=== PATIENT | male | born 1990 | race Caucasian/White ===

== ENCOUNTER 2020-12-05 13:17 | Emergency (ER) | payer SELFPAY ==
[~2020-12-05] VITALS: Ht 175.3 cm; Wt 90.7 kg
[2020-12-05 13:25] VITALS: BP 134/77
--- NOTE | 2020-12-05 13:28 | NUR ---
PT AMBULATED TO BED 11, STEADY GAIT.
--- NOTE | 2020-12-05 13:29 | NUR ---
30Y M c/c of wanting to be screened for STD's following two months of unprotected heterosexual sex. Pt denies n/v/d, flank pain, dyruria, polyuria, hematuria, penile discharge, penile changes, abd pain. PMH: Denies NKA RX: Denies
[2020-12-05] MEDS ORDERED: AZITHROMYCIN 250 MG TAB PO ONE (13:40)
[2020-12-05] MEDS ORDERED: cefTRIAXone 250 MG in LIDOCAINE MPF 1% 0.9 ML IM ONE (13:40)
--- NOTE | 2020-12-05 13:41 | NUR ---
ERMD evaluating pt at bedside.
[2020-12-05] MEDS ORDERED: ACYC400T PO (13:46)
[2020-12-05] MEDS ORDERED: LIDOCAINE MPF 1% 5 ML ONE (13:56)
[2020-12-05] MEDS ORDERED: cefTRIAXone 250 MG VIAL ONE (13:56)
[2020-12-05 14:10] VITALS: BP 134/77
--- NOTE | 2020-12-05 14:10 | NUR ---
Patient discharged with v/s stable. Written and verbal after care instructions given and explained. Patient alert, oriented and verbalized understanding of instructions. Ambulatory with steady gait. All questions addressed prior to discharge. ID band removed. Patient advised to follow up with PMD. Rx of Acyclovir given. Patient educated on indication of medication including possible reaction and side effects. Opportunity to ask questions provided and answered.
== END 2020-12-05 14:10 | disposition home or self-care (01) ==
LOC: MED 13:17
DX: A60.01 Herpesviral infection of penis (principal); Z11.3 Encounter for screening for infections with a predominantly sexual mode of transmission
CPT/HCPCS: 36415; 81002; 96372; 99283; J0696; J2001

== ENCOUNTER 2021-02-01 00:21 | Emergency (ER) | payer SELFPAY ==
[~2021-02-01] VITALS: Ht 175.3 cm; Wt 88.5 kg
[~2021-02-01 00:21] MED LIST: ACYC400T PO
[2021-02-01 00:27] VITALS: BP 154/90
[2021-02-01] MEDS ORDERED: PENICILLIN G BENZATHINE C-R 1.2 MU/2 ML SYR IM ONE (00:50)
[2021-02-01] MEDS ORDERED: cefTRIAXone 500 MG in LIDOCAINE MPF 1% 1 ML IM ONE (00:50)
[2021-02-01] MEDS ORDERED: DOXYCYCLINE 100 MG CAP PO SCH (00:50)
[2021-02-01] MEDS ORDERED: ACYC-278 PO (01:00)
[2021-02-01] MEDS ORDERED: DOXY-487 PO (01:00)
[2021-02-01] MEDS ORDERED: cefTRIAXone 500 MG VIAL ONE (01:00)
[2021-02-01] MEDS ORDERED: LIDOCAINE MPF 1% 5 ML ONE (01:01)
[2021-02-01 01:07] LABS: APPEARANCE,URINE CLOUDY (CLEAR); BILIRUBIN,URINE 1+ (NEGATIVE); BLOOD, URINE 2+ (NEGATIVE); COLOR,URINE YELLOW (YELLOW); LEUKOCYTE ESTERASE ,URINE 1+ (NEGATIVE); NITRITE, URINE NEGATIVE (NEGATIVE); PH,URINE 5.5 (5.0-9.0); UGLUCOSE NEGATIVE (NEGATIVE)
[2021-02-01 01:17] LABS: RBC,URINE 0-5 /HPF (0-5); WBC,URINE TOO MANY TO COUNT /HPF (0-5)
[2021-02-01 01:30] VITALS: BP 118/90
== END 2021-02-01 01:30 | disposition home or self-care (01) ==
LOC: MED 00:21
DX: A64 Unspecified sexually transmitted disease (principal); N34.2 Other urethritis; F17.200 Nicotine dependence, unspecified, uncomplicated; Z79.899 Other long term (current) drug therapy
CPT/HCPCS: 36415; 81001; 86592; 87086; 96372; 99284; J0558; J0696; J2001; 87491

== ENCOUNTER 2021-04-27 22:04 | Emergency (ER) | payer SELFPAY ==
[~2021-04-27] VITALS: Ht 175.3 cm; Wt 90.7 kg
[~2021-04-27 22:04] MED LIST changes: +ACYC-278 PO; -ACYC400T PO; +DOXY-487 PO
[2021-04-27 22:09] VITALS: BP 150/81
--- NOTE | 2021-04-27 22:12 | NUR ---
TO LOBBY A/W BED AMBULATORY
[2021-04-27] MEDS ORDERED: cefTRIAXone 1,000 MG in LIDOCAINE MPF 1% 2.1 ML IM ONE (22:50)
[2021-04-27] MEDS ORDERED: AZITHROMYCIN 250 MG TAB PO ONE (22:50)
--- NOTE | 2021-04-27 22:53 | NUR ---
PT AMBULATED TO BED 08.
--- NOTE | 2021-04-27 23:00 | NUR ---
PT. IS A 30 Y/O MALE THAT CAME INTO ED WITH C/O OF PENILE DISCHARGE. PT. STATES THAT HE HAS TESTED POSITIVE FOR GONORRHEA, BUT DENIES PAIN AT THIS TIME. PT. STATES SINCE 2 DAYS AGO, HE HAS BEEN HAVING PENILE DISCHARGE WITH THE COLOR YELLOW. DENIES N/V/D/FEVER; SKIN IS PINK/WARM/DRY; AAOX4 WITH EVEN AND STEADY GAIT; HR EVEN AND REGULAR; PT DENIES ANY FEVER, CP, SOB, OR COUGH AT THIS TIME; VSS; PATIENT SITTING ON BED FOR COMFORT; HOB ELEVATED; BEDRAILS UP X1; BED DOWN. ER MD MADE AWARE OF PT STATUS. PMH: NONE ALLERGIES: NKA
[2021-04-27] MEDS ORDERED: cefTRIAXone 1,000 MG VIAL ONE (23:17)
[2021-04-27] MEDS ORDERED: LIDOCAINE MPF 1% 5 ML ONE (23:17)
[2021-04-27] MEDS ORDERED: DOXY-487 PO (23:30)
--- NOTE | 2021-04-27 23:33 | NUR ---
PT GIVEN DISCHARGE INSTRUCTIONS AND MEDICATION TEACHINGS BY DR. MENDEZ. RX OF DOXYCYCLINE GIVEN. PT AMBULATED WITH STEADY GAIT TO PERSONAL VEHICLE. PT LEFT FACILITY AT THIS TIME.
--- NOTE | 2021-04-30 09:21 | NUR ---
LATE ENTRY-- RECEIVED CALL FROM LAB, PATIENT POSITIVE FOR GONORRHEA
== END 2021-04-27 23:33 | disposition home or self-care (01) ==
LOC: MED 22:04
DX: Z20.2 Contact with and (suspected) exposure to infections with a predominantly sexual mode of transmission (principal); Z79.899 Other long term (current) drug therapy
CPT/HCPCS: 36415; 81002; 87491; 96372; 99283; J0696; J2001

== ENCOUNTER 2021-11-21 19:15 | Emergency (ER) | payer SELFPAY ==
[~2021-11-21] VITALS: Ht 172.7 cm; Wt 94.5 kg
[2021-11-21 19:45] VITALS: BP 152/99
--- NOTE | 2021-11-21 19:52 | NUR ---
PT TAKEN TO LOBBY.
[2021-11-21] MEDS ORDERED: SULF-59 PO (20:44)
[2021-11-21 20:55] VITALS: BP 152/99
== END 2021-11-21 20:55 | disposition home or self-care (01) ==
LOC: MED 19:15
DX: S81.831A Puncture wound without foreign body, right lower leg, initial encounter (principal); L03.115 Cellulitis of right lower limb; Z79.2 Long term (current) use of antibiotics; Z79.899 Other long term (current) drug therapy
CPT/HCPCS: 73590; 73610; 73630; 99284

== ENCOUNTER 2021-12-06 05:19 | Emergency (ER) | payer SELFPAY ==
[~2021-12-06] VITALS: Ht 175.3 cm; Wt 86.2 kg
[~2021-12-06 05:19] MED LIST changes: +SULF-59 PO
[2021-12-06 05:39] VITALS: BP 106/69
--- NOTE | 2021-12-06 05:39 | NUR ---
TO BED AMBULATORY
--- NOTE | 2021-12-06 06:00 | NUR ---
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 PT WAS SEEN HERE WHEN INCIDENT OCCURED AND TOLD TO RETURN IF SWELLING OCCURED. DIME SIZED SCAB WOUND NOTED TO R LOWER LEG, SWELLING NOTED, REDNESS. 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 PT DENIES ANY FEVERS CHILLS, N/V/D. PT AMBULATORY W STEADY GAIT. PMH: DENIES ALLERGIES: DENIES
[2021-12-06] MEDS ORDERED: CEPH-588 PO ×2 (06:27→06:52)
[2021-12-06 06:50] VITALS: BP 106/69
--- NOTE | 2021-12-06 06:50 | NUR ---
Patient discharged with v/s stable. Written and verbal after care instructions given and explained. Patient alert, oriented and verbalized understanding of instructions. Ambulatory with steady gait. All questions addressed prior to discharge. ID band removed. Patient advised to follow up with PMD. Rx of KEFLEX given. Opportunity to ask questions provided and answered.
== END 2021-12-06 06:50 | disposition home or self-care (01) ==
LOC: MED 05:19
DX: L03.115 Cellulitis of right lower limb (principal); Z79.899 Other long term (current) drug therapy
CPT/HCPCS: 90471; 90715; 99283

== ENCOUNTER 2022-03-14 17:24 | Emergency (ER) | payer SELFPAY ==
[~2022-03-14] VITALS: Ht 175.3 cm; Wt 89.8 kg
[~2022-03-14 17:24] MED LIST changes: +CEPH-588 PO
[2022-03-14 17:35] VITALS: BP 143/65
--- NOTE | 2022-03-14 19:11 | NUR ---
31 y/o male states he had unprotected sex last week and would like to get tested for stds. pt states the last time he was here he tested positive for gonorrhea. denies nausea, vomiting, diarrhea. skin is pink/warm/dry. a&o x4 with even and steady gait. lungs clear bl, heart rate even and regular. pt denies dysuria, hematuria, urinary frequency or retention, or anyone sick in the household with the same symptoms. pt denies any fever, cp, sob, or cough at this time. pt states pain is 0/10 at this time. vss. leslie made aware of pt. pmh: nadya perez med: denies
[2022-03-14] MEDS ORDERED: DOXY-565 PO (19:42)
[2022-03-14] MEDS ORDERED: IBUP-2213 PO (19:42)
[2022-03-14] MEDS ORDERED: cefTRIAXone 500 MG VIAL ONE (20:58)
[2022-03-14] MEDS ORDERED: LIDOCAINE MPF 1% 5 ML ONE (20:59)
[2022-03-14] MEDS: cefTRIAXone 500 MG in LIDOCAINE MPF 1% 1 ML IM ONE (21:08)
[2022-03-14 21:30] VITALS: BP 143/65
--- NOTE | 2022-03-14 21:30 | NUR ---
Patient discharged with v/s stable. Written and verbal after care instructions given and explained. Patient verbalized understanding. Ambulatory with steady gait. All questions addressed prior to discharge. Advised to follow up with PMD.
== END 2022-03-14 21:30 | disposition home or self-care (01) ==
LOC: MED 17:24
DX: R30.0 Dysuria (principal); R03.0 Elevated blood-pressure reading, without diagnosis of hypertension; Z20.2 Contact with and (suspected) exposure to infections with a predominantly sexual mode of transmission; Z79.899 Other long term (current) drug therapy
CPT/HCPCS: 81002; 96372; 99283; J0696; J2001

== ENCOUNTER 2022-05-06 14:27 | Emergency (ER) | payer SELFPAY ==
[~2022-05-06] VITALS: Ht 175.3 cm; Wt 85.3 kg
[~2022-05-06 14:27] MED LIST changes: +DOXY-565 PO; +IBUP-2213 PO
[2022-05-06 14:38] VITALS: BP 133/88
--- NOTE | 2022-05-06 15:19 | NUR ---
31 y/o male bib self, c/o right posterior calf pain after being bit by bug today. denies n/v/d. skin is pink/warm/dry. a&o x4 with even and steady gait. lungs clear bl, heart rate even and regular. pt denies any fever, cp, sob, or cough at this time. pt states pain is 9/10 at this time. vss. ermd made aware of pt. pmh: denies nka med: denies
[2022-05-06] MEDS ORDERED: LIDOCAINE MPF 1% 5 ML ONE (15:26)
[2022-05-06] MEDS ORDERED: cefTRIAXone 1,000 MG VIAL ONE (15:26)
[2022-05-06] MEDS ORDERED: CEPH-588 PO (15:33)
[2022-05-06] MEDS ORDERED: IBUP-2213 PO (15:33)
[2022-05-06] MEDS ORDERED: SULF-59 PO (15:33)
[2022-05-06] MEDS: cefTRIAXone 1,000 MG in LIDOCAINE MPF 1% 2.1 ML IM ONE (15:38)
[2022-05-06] MEDS: KETOROLAC 30 MG/ML VIAL IM ONE (15:39)
[2022-05-06 15:40] VITALS: BP 133/88
--- NOTE | 2022-05-06 15:41 | NUR ---
Patient discharged with v/s stable. Written and verbal after care instructions given and explained. Patient alert, oriented and verbalized understanding of instructions. Ambulatory with steady gait. All questions addressed prior to discharge. ID band removed. Patient advised to follow up with PMD. Rx of bactrim, keflex, ibuprofen (sent) given. Patient educated on indication of medication including possible reaction and side effects. Opportunity to ask questions provided and answered.
== END 2022-05-06 15:40 | disposition home or self-care (01) ==
LOC: MED 14:27
DX: L03.115 Cellulitis of right lower limb (principal)
CPT/HCPCS: 90471; 90715; 96372; 99284; J0696; J1885; J2001; J7030

== ENCOUNTER 2022-12-14 13:50 | Emergency (ER) | payer SELFPAY ==
[~2022-12-14] VITALS: Ht 172.7 cm; Wt 88.5 kg
[~2022-12-14 13:50] MED LIST changes: -DOXY-565 PO; +DOXY-745 PO
[2022-12-14 14:11] VITALS: BP 139/80
[2022-12-14] MEDS ORDERED: cefTRIAXone 1,000 MG in LIDOCAINE MPF 1% 2.1 ML IM ONE (14:35)
[2022-12-14] MEDS ORDERED: DOXY-690 PO (14:37)
[2022-12-14] MEDS ORDERED: LIDOCAINE MPF 1% 5 ML ONE (14:59)
[2022-12-14] MEDS ORDERED: cefTRIAXone 1,000 MG VIAL ONE (14:59)
--- NOTE | 2022-12-14 15:07 | NUR ---
URINE GIVEN TO PHLEB
[2022-12-14 15:11] VITALS: BP 139/80
--- NOTE | 2022-12-14 15:17 | NUR ---
Patient discharged with v/s stable. Written and verbal after care instructions given and explained. Patient alert, oriented and verbalized understanding of instructions. Ambulatory with steady gait. All questions addressed prior to discharge. ID band removed. Patient advised to follow up with PMD. Rx of Vibramycin given. Patient educated on indication of medication including possible reaction and side effects. Opportunity to ask questions provided and answered.
== END 2022-12-14 15:11 | disposition home or self-care (01) ==
LOC: MED 13:50
DX: Z20.2 Contact with and (suspected) exposure to infections with a predominantly sexual mode of transmission (principal); Z79.899 Other long term (current) drug therapy; Z79.1 Long term (current) use of non-steroidal anti-inflammatories (NSAID); Z79.2 Long term (current) use of antibiotics
CPT/HCPCS: 87491; 96372; 99283; J0696; J2001

== ENCOUNTER 2023-02-11 00:08 | Emergency (ER) | payer SELFPAY ==
[~2023-02-11] VITALS: Ht 172.7 cm; Wt 99.8 kg
[~2023-02-11 00:08] MED LIST changes: +DOXY-690 PO
[2023-02-11 00:15] VITALS: BP 122/92
--- NOTE | 2023-02-11 00:20 | NUR ---
PT AMBULATES TO BED 12
--- NOTE | 2023-02-11 00:24 | NUR ---
Patient being evaluated by BRAEDEN at bedside.
[2023-02-11] MEDS ORDERED: FUROSEMIDE 40 MG/4 ML VIAL IVP SCH (00:30)
--- NOTE | 2023-02-11 00:32 | NUR ---
X-Ray at bedside.
[2023-02-11 00:58] LABS: ALBUMIN 2.9 g/dL (3.4-5.0); ANION GAP 8.4 (8-16); CARBON DIOXIDE 31.7 mmol/L (21-32); CREATININE 0.9 mg/dL (0.6-1.3); POTASSIUM 4.1 mmol/L (3.5-5.1); TOTAL BILIRUBIN 0.5 mg/dL (0.0-1.0)
[2023-02-11 01:40] LABS: BARBITURATE, URINE NEGATIVE ng/ml (NEG <=200); BENZODIAZEPINE, URINE NEGATIVE ng/mL (NEG <=200); CANNABINOID, URINE NEGATIVE ng/mL (NEG <=50); COCAINE, URINE NEGATIVE ng/mL (NEG <=300); OPIATE, URINE POSITIVE ng/mL (NEG <=2000); PHENCYCLIDINE SCREEN,URINE NEGATIVE ng/mL (NEG <=25)
[2023-02-11] MEDS ORDERED: FURO-572 PO (01:52)
--- NOTE | 2023-02-11 02:15 | NUR ---
Patient discharged with v/s stable. Written and verbal after care instructions given and explained. Patient alert, oriented and verbalized understanding of instructions. Ambulatory with steady gait. All questions addressed prior to discharge. ID band removed. Patient advised to follow up with PMD. Rx of Lasix given. Patient educated on indication of medication including possible reaction and side effects. Opportunity to ask questions provided and answered.
[2023-02-11 02:23] VITALS: BP 129/62
[2023-02-11] MEDS ORDERED: NALO4SPR NS (08:59)
== END 2023-02-11 02:15 | disposition home or self-care (01) ==
LOC: MED 00:08
DX: R60.0 Localized edema (principal); F15.10 Other stimulant abuse, uncomplicated; Z79.899 Other long term (current) drug therapy
CPT/HCPCS: 36415; 71045; 80053; 80305; 81002; 83880; 96374; 99284; J1940; Q0092

== ENCOUNTER 2023-02-11 08:23 | Emergency (ER) | payer SELFPAY ==
[~2023-02-11] VITALS: Ht 20.3 cm; Wt 99.8 kg
[~2023-02-11 08:23] MED LIST changes: +FURO-572 PO
[2023-02-11 08:27] VITALS: BP 137/74
[2023-02-11] MEDS ORDERED: NACL 0.9% 1,000 ML IV ONE (08:35)
--- NOTE | 2023-02-11 08:40 | NUR ---
Pt bib als after being found by pd with a reported heroin overdose. Pt was given narcan by ems. Pt is now a/o x 4, vss (with note to elevated hr and sat 90%), speech clear, breathing equal and unlabored, no complaints at this time. Pt was origianlly going to leave [facility] but after speaking with EMS for some time decided to stay. MD has seen pt. Pt on monitor, resting in bed. IV started by ems.
[2023-02-11] MEDS ORDERED: NALO4SPR NS (08:59)
--- NOTE | 2023-02-11 09:21 | NUR ---
Pt left ama. Pt was pulling out his IV and standing in hallway when I approached him. He allowed me to remove IV and place a bandage. Pt was on the phone speaking with his ride outside and refused any consult. Pt signed AMA form before rushing outside. Pt a/o x 4, breathing equal and unlabored, vss (with note to elevated hr), MD came to bedside and spoke with pt before pt left.
== END 2023-02-11 09:21 | disposition left against medical advice (07) ==
LOC: MED 08:23
DX: T40.1X1A Poisoning by heroin, accidental (unintentional), initial encounter (principal); F15.90 Other stimulant use, unspecified, uncomplicated; Z79.899 Other long term (current) drug therapy; Y92.89 Other specified places as the place of occurrence of the external cause
CPT/HCPCS: 96360; 99283; J7030

== ENCOUNTER 2023-03-28 23:15 | Emergency (ER) | payer MEDICAID ==
[~2023-03-28] VITALS: Ht 170.2 cm; Wt 88.5 kg
[~2023-03-28 23:15] MED LIST changes: +NALO4SPR NS
[2023-03-28 23:54] VITALS: BP 125/73; PULSE 90; RESP 20; TEMP 98; O2SAT 98
--- NOTE | 2023-03-29 00:02 | NUR ---
PT WENT TO THE LOBBY
[2023-03-29] MEDS ORDERED: cefTRIAXone 500 MG in LIDOCAINE MPF 1% 1 ML IM ONE (01:00)
[2023-03-29] MEDS ORDERED: cefTRIAXone 500 MG VIAL ONE (01:03)
[2023-03-29] MEDS ORDERED: LIDOCAINE MPF 1% 5 ML ONE (01:05)
--- NOTE | 2023-03-29 01:10 | NUR ---
Urine specimen sent to lab.
[2023-03-29] MEDS ORDERED: DOXY-745 PO (01:22)
[2023-03-29 01:30] VITALS: BP 125/73; PULSE 90; RESP 20; TEMP 98; O2SAT 98
[2023-03-30] MEDS ORDERED: DOXY-487 PO (00:13)
== END 2023-03-29 01:30 | disposition home or self-care (01) ==
LOC: MED 23:15
DX: Z11.3 Encounter for screening for infections with a predominantly sexual mode of transmission (principal); R36.9 Urethral discharge, unspecified; Z79.899 Other long term (current) drug therapy; Z79.2 Long term (current) use of antibiotics; Z79.1 Long term (current) use of non-steroidal anti-inflammatories (NSAID)
CPT/HCPCS: 81002; 87491; 96372; 99283; J0696; J2001

== ENCOUNTER 2023-03-29 21:04 | Emergency (ER) | payer MEDICAID ==
[~2023-03-29] VITALS: Ht 172.7 cm; Wt 88.5 kg
[2023-03-29 21:18] VITALS: BP 149/72; PULSE 85; RESP 16; TEMP 97.4; O2SAT 99
--- NOTE | 2023-03-29 21:34 | NUR ---
TO LOBBY FOLLOWING TRIAGE
--- NOTE | 2023-03-29 22:22 | NUR ---
PT AMBULATED TO BED 01
--- NOTE | 2023-03-29 22:30 | NUR ---
pt resting on bed, a/ox4. not in distress. chest rise and fall symmetrical. on monitor. oriented to call light and within reach. bed locked lowest position. side rails x2 for safety. placed on moderate high back rest.
[2023-03-29] MEDS ORDERED: AZITHROMYCIN 250 MG TAB PO ONE (23:30)
[2023-03-29] MEDS ORDERED: cefTRIAXone 1,000 MG in LIDOCAINE MPF 1% 2.1 ML IM ONE (23:30)
[2023-03-29] MEDS ORDERED: cefTRIAXone 1,000 MG VIAL ONE (23:40)
[2023-03-29] MEDS ORDERED: LIDOCAINE MPF 1% 5 ML ONE (23:41)
[2023-03-30] MEDS ORDERED: DOXY-487 PO (00:13)
[2023-03-30 00:20] VITALS: BP 136/72; PULSE 85; RESP 16; TEMP 97.5; O2SAT 99
--- NOTE | 2023-03-30 00:20 | NUR ---
Patient discharged with v/s stable. Written and verbal after care instructions given and explained by dr. ramirez. Patient verbalized understanding. Ambulatory with steady gait. All questions addressed prior to discharge. Advised to follow up with PMD.
== END 2023-03-30 00:20 | disposition home or self-care (01) ==
LOC: MED 21:04
DX: A64 Unspecified sexually transmitted disease (principal); Z79.899 Other long term (current) drug therapy; Z79.2 Long term (current) use of antibiotics; Z79.1 Long term (current) use of non-steroidal anti-inflammatories (NSAID)
CPT/HCPCS: 87491; 96372; 99283; J0696; J2001

== ENCOUNTER 2023-04-28 21:56 | Emergency (ER) | payer SELFPAY ==
[2023-04-29] MEDS ORDERED: CEPH-588 PO (10:26)
[2023-04-29] MEDS ORDERED: IBUP-2213 PO (10:26)
[2023-04-29] MEDS ORDERED: SULF-59 PO (10:26)
[2023-04-29] MEDS ORDERED: CHLO237S1 TP (10:27)
== END 2023-04-28 22:44 | disposition left against medical advice (07) ==
LOC: MED 21:56
DX: T14.8XXA Other injury of unspecified body region, initial encounter (principal); Z53.21 Procedure and treatment not carried out due to patient leaving prior to being seen by health care provider; W57.XXXA Bitten or stung by nonvenomous insect and other nonvenomous arthropods, initial encounter; Y93.89 Activity, other specified; Y92.89 Other specified places as the place of occurrence of the external cause; Y99.8 Other external cause status

== ENCOUNTER 2023-04-29 09:06 | Emergency (ER) | payer MEDICAID ==
[~2023-04-29] VITALS: Ht 172.7 cm; Wt 96.2 kg
[2023-04-29 09:09] VITALS: BP 121/80; PULSE 95; RESP 16; TEMP 98
[2023-04-29] MEDS ORDERED: BACITRACIN OINT 500 UNITS/GM PKT TP ONE (10:15)
[2023-04-29] MEDS ORDERED: SULF-59 PO (10:26)
[2023-04-29] MEDS ORDERED: IBUP-2213 PO (10:26)
[2023-04-29] MEDS ORDERED: CEPH-588 PO (10:26)
[2023-04-29] MEDS ORDERED: CHLO237S1 TP (10:27)
== END 2023-04-29 10:37 | disposition home or self-care (01) ==
LOC: MED 09:06
DX: L02.416 Cutaneous abscess of left lower limb (principal); Z79.899 Other long term (current) drug therapy
CPT/HCPCS: 99284